=== PATIENT | female | born 1970 | race Caucasian/White ===

== ENCOUNTER → 2016-06-12 | Outpatient (CLI) | payer BC | LOC: MAMMO 08:10 | DX: Z12.31 Encounter for screening mammogram for malignant neoplasm of breast (principal); R92.2 Inconclusive mammogram | CPT/HCPCS: G0202 ==

== ENCOUNTER → 2018-03-11 | Outpatient (CLI) | payer BC | LOC: MAMMO 14:28 | DX: Z12.31 Encounter for screening mammogram for malignant neoplasm of breast (principal) ==

== ENCOUNTER → 2019-08-25 | Outpatient (CLI) | payer BC | LOC: MAMMO 10:37 | DX: Z12.31 Encounter for screening mammogram for malignant neoplasm of breast (principal) ==

== ENCOUNTER → 2021-01-11 | Outpatient (CLI) | payer BC | LOC: MAMMO 09:50 → LAB 09:50 | DX: Z12.31 Encounter for screening mammogram for malignant neoplasm of breast (principal) ==

== ENCOUNTER → 2021-01-11 | Outpatient (REF) | LOC: LAB 09:55 | DX: Z00.00 Encounter for general adult medical examination without abnormal findings (principal) ==

== ENCOUNTER → 2022-02-11 | Outpatient (CLI) | payer BC ==
[2022-02-11 07:15] LABS: BASO # 0.02 K/mm3 (0.02-0.10); EOS # 0.08 K/mm3 (0.04-0.40); EOS % 1.4 % (1.0-5.0); HEMATOCRIT 41.3 % (37.0-47.0); HEMOGLOBIN 13.7 g/dL (12.5-16.0); LYMPH# 1.83 K/mm3 (1.50-4.00); MEAN CELL VOLUME 86 fl (78-100); MEAN CORPUSCULAR HEMOGLOBIN 29 pg (27-31); MEAN CORPUSCULAR HGB CONC 33 g/dL (33-37); MEAN PLATELET VOLUME 9.2 fl (7.4-10.4); MONO # 0.51 K/mm3 (0.20-0.80); NEU # 3.32 K/mm3 (1.40-6.50); PLATELET COUNT 281 K/mm3 (130-400); RED BLOOD COUNT 4.78 M/mm3 (4.10-5.30); RED CELL DISTRIBUTION WIDTH 13.1 % (11.5-14.5); WHITE BLOOD COUNT 5.8 K/mm3 (4.8-10.8)
[2022-02-11 07:23] LABS: POTASSIUM 3.9 mmol/L (3.5-5.1)
[2022-02-11 07:25] LABS: CALCIUM 9.2 mg/dL (8.3-10.5)
[2022-02-11 07:26] LABS: TOTAL PROTEIN 6.8 g/dL (6.4-8.3)
[2022-02-11 07:28] LABS: TOTAL BILIRUBIN 0.6 mg/dL (0.2-1.2)
== END ==
LOC: LAB 06:55
PROVIDERS: Internal Medicine
DX: Z00.00 Encounter for general adult medical examination without abnormal findings (principal)

== ENCOUNTER → 2023-10-20 | Outpatient (CLI) | payer BC | LOC: MAMMO 08:30 | DX: Z12.31 Encounter for screening mammogram for malignant neoplasm of breast (principal); N63.21 Unspecified lump in the left breast, upper outer quadrant ==

== ENCOUNTER → 2023-11-04 | Outpatient (CLI) | payer BC | LOC: RAD 07:25 | DX: N63.21 Unspecified lump in the left breast, upper outer quadrant (principal) ==